=== PATIENT | female | born 1945 | race Caucasian/White ===

== ENCOUNTER 2018-06-29 08:49 | Day surgery (SDC) | payer MEDICARE ==
[~2018-06-29 08:49] MED LIST: CELECOXIB 100 MG CAPSULE PO ONE; FAMOTIDINE 20MG TABLET PO ONE; MECLIZINE 25 MG TABLET PO ONE; METOCLOPRAMIDE 10 MG TABLET PO ONE; VANCOMYCIN HCL 1 MG in DEXTROSE 5 % IN WATER 250 ML IVPB ONE
[2018-06-29] MEDS ORDERED: DEXAMETHASONE 4 MG/ML 1ML VIAL IVP ONE (08:50)
[2018-06-29] MEDS ORDERED: GLYCOPYRROLATE 0.2 MG/ML ML IV ONE (08:50)
[2018-06-29] MEDS ORDERED: KETAMINE HCL 100MG/1ML VIAL INJ ONE (08:50)
[2018-06-29] MEDS ORDERED: ROPIVACAINE HCL (NAROPIN) /PF 5MG/ML 20ML VIAL IV ONE (08:50)
[2018-06-29] MEDS ORDERED: MIDAZOLAM HCL 2MG/2ML VIAL IV ONE (08:50)
[2018-06-29] MEDS ORDERED: TRANEXAMIC ACID 1,000 MG/10 ML ML IV ONE ×2 (08:50)
[2018-06-29] MEDS ORDERED: 0.9 % SODIUM CHLORIDE 10 ML VIAL IVP ONE (08:50)
[2018-06-29 09:29] LABS: ABO GROUP O; RH TYPE POSITIVE
[2018-06-29] MEDS ORDERED: RINGERS SOLUTION,LACTATED 1,000 ML IV ONE ×3 (09:30→12:30)
[2018-06-29 09:42] LABS: ANTIBODY SCREEN NEGATIVE (NEGATIVE)
[2018-06-29] MEDS ORDERED: BUPIVACAINE 0.5% W/EPI MPF 30 ML VIAL SQ ONE (11:54)
[2018-06-29] MEDS ORDERED: ZOLPIDEM TARTRATE 5 MG TABLET PO PRN (13:15)
[2018-06-29] MEDS ORDERED: ONDANSETRON HCL IV 4 MG/2 ML VIAL IVP PRN (13:15)
[2018-06-29] MEDS ORDERED: KETOROLAC 30 MG/ML VIAL IVP PRN ×2 (13:15)
[2018-06-29] MEDS ORDERED: BISACODYL 10 MG SUPP RC PRN (13:15)
[2018-06-29] MEDS ORDERED: DIPHENHYDRAMINE HCL 25 MG CAPSULE PO PRN (13:15)
[2018-06-29] MEDS ORDERED: NALOXONE 0.4 MG/1 ML VIAL IVP PRN (13:15)
[2018-06-29] MEDS ORDERED: AL HYDROX/MAG HYDROX 30ML UD PO PRN (13:15)
[2018-06-29] MEDS ORDERED: MAGNESIUM HYDROXIDE 30 ML UDC PO PRN (13:15)
[2018-06-29] MEDS ORDERED: ACETAMINOPHEN 325 MG TAB PO PRN (13:15)
[2018-06-29] MEDS ORDERED: MEPERIDINE 50 MG/1 ML VIAL IV PRN ×2 (13:21→15:24)
[2018-06-29] MEDS ORDERED: MEPERIDINE 50 MG/1 ML VIAL PO PRN ×2 (15:24→15:25)
[2018-06-29] MEDS ORDERED: HYDROCODONE/APAP 7.5/325MG TABLET PO PRN (15:49)
[2018-06-29] MEDS ORDERED: BREO (FLUTICASONE/VILANTEROL) 200MCG/25MCG INHALER INH PRN (15:51)
[2018-06-29] MEDS ORDERED: ALBUTEROL HFA 8 GM INHALER INH PRN (15:52)
--- NOTE | 2018-06-29 16:46 | Rehab Evaluation ---
Patient Information - Patient Information Diagnosis: R knee OA Ordered Treatment: PT Evaluate and Treat Status: Initial Evaluation Surgery: Yes (TKA R knee) Date of Surgery: 06/29/18 Past Medical/Surgical Hx: PAST MEDICAL/SURGICAL HISTORY Past Surgical History TONSILS ORIF RIGHT LEG EVIE AND APPY RIGHT THUMB EAR TUBES X'S 2 C SCOPES BILAT KNEE SCOPES CYST REMOVAL CHEST LEFT FOOT SX X'S 3 EYE LID SX PMH - Respiratory Hx Asthma Yes: WELL CONTROLLED RARELY USES INHALER Hx Bronchitis Yes: IN THE PAST PMH - Cardiovascular Hx Cardiovascular Disorders Yes Hx Hypertension Yes: ON MEDS GOOD CONTROL Exercise Tolerance Good PMH - Neuro Hx Neurological Disorders No PMH - GI Hx Gastrointestinal Disorders Yes Hx Gastroesophageal Reflux Yes: CONTROLLED WITH MEDS Hx Ulcer Yes: GASTRIC PMH - Hx Genitourinary Disorders Yes Hx Age of Menopause 50 Hx Bladder Problem Yes: FREQUENCY ON MEDS PMH - Endocrine Hx Endocrine Disorders Yes Hx Thyroid Disease Yes PMH - Musculoskeletal Hx Musculoskeletal Disorders Yes Hx Arthritis Yes Hx Gout Yes: HX OF Hx Osteoporosis Yes: ON MEDS PMH - Psych Hx Psychiatric Problems Yes Hx Anxiety Yes PMH - Hematology/Oncology Hx Hematology/Oncology No Disorders Premorbid Status: Detail (The patient was independent with all mobility prior to surgery.) Social History: Detail (The patient lives with spuse in a 3 story house with a ramp at the enterance. The bathroom is equipped with a tub/shower combination, shower chair and standard height toilet.) Precautions: [place], Fall, Other (WBAT on the R LE) - Time With Patient Total Time Spent With Patient (Min): 30 Treatment Procedures: Detail (Initial Evaluation, Low complexity) Subjective Information - Subjective Information Per Patient (The patient had no complaints of pain.) Objective Data - Mental Status Patient Orientation: Oriented x3 - Visual Perception Appears within normal limits for therapeutic activities - ROM Not within normal limits (The patient's R knee was limited s/p surgery. All other AROM was WNL.) - Strength/Tone Not within normal limits (The patient's R LE was not tested s/p surgery however strength was functional ie: patient was able to lift LE in and out of bed independently. The patient's L LE was WFL.) - Bed Mobility Independent (The patient was independent with supine to and from sit transfer and scooting up in bed.) - Transfers Independent (The patient was independent with sit to and from stand transfer.) - Balance Balance Sitting: Good Balance Standing: Good - Gait Detail (The patient ambulated with 2 wheeled walker a distance of 80 feet x 1 WBAT on the R LE with supervision for safety.) Therapy Assessment - Therapy Assessment Detail (The patient was independent with bed mobiity and transfers and required supervision for safety only. Feel the patient will progress well with mobility.) Problem List - Problem List Physical Therapy Problem List: Detail (1) Decreased R knee AROM s/p surgery 2) Decreased R LE strength s/p surgery) Goals - Goals Physical Therapy Goals: 1) The patient will be independent with TKA HEP. 2) The patient will verbalize good understanding of stairclimbing technique (patient has no stairs at home). 3) The patient will be independent with ambulation with appropriate assistive device WBAT on the R LE community distances. Prognosis - Prognosis Good Plan - Plan Physical Therapy Plan: PT 1-2 sessions for gait training and instruction in HEP.
[2018-06-29] MEDS: HYDROCODONE/APAP 7.5/325MG TABLET PO PRN (18:26)
[2018-06-29] MEDS: POTASSIUM CHLORIDE/D5-0.9%NACL 20 MEQ/1,000 ML BAG IV SCH ×2 (18:27→21:54)
[2018-06-29] MEDS: VANCOMYCIN HCL 1,000 MG in DEXTROSE 5 % IN WATER 250 ML IVPB SCH ×2 (21:51)
[2018-06-29] MEDS: DOCUSATE SODIUM 100 MG CAPSULE PO SCH (21:52)
[2018-06-29] MEDS ORDERED: CITALOPRAM 20 MG TABLET PO SCH (22:00)
[2018-06-29] MEDS ORDERED: PANTOPRAZOLE SODIUM 40 MG TABLET PO SCH (22:00)
[2018-06-29] MEDS ORDERED: AMLODIPINE BESYLATE 5MG TAB PO SCH (22:00)
[2018-06-30] MEDS: POTASSIUM CHLORIDE/D5-0.9%NACL 20 MEQ/1,000 ML BAG IV SCH ×2 (05:08→15:19)
[2018-06-30 06:56] LABS: HEMATOCRIT 36.4 % (35.0-47.0); HEMOGLOBIN 11.6 gm/dl (11.6-16.0)
[2018-06-30] MEDS ORDERED: LEVOTHYROXINE SODIUM 25 MCG TABLET PO SCH (07:00)
[2018-06-30 07:14] LABS: BLOOD UREA NITROGEN 19 mg/dL (8-23); CREATININE 0.7 mg/dL (0.5-0.9); EST GLOMERULAR FILTRATION RATE > 60 mL/min; GLUCOSE,RANDOM 127 mg/dL (74-109)
[2018-06-30] MEDS ORDERED: HYDROCHLOROTHIAZIDE 25 MG TABLET PO SCH (10:00)
[2018-06-30] MEDS ORDERED: RIVAROXABAN 10 MG TABLET PO SCH (10:00)
[2018-06-30] MEDS ORDERED: FERROUS SULFATE 325 MG TAB PO SCH (10:00)
[2018-06-30] MEDS ORDERED: LORATADINE 10 MG TABLET PO SCH (10:00)
[2018-06-30] MEDS ORDERED: METOPROLOL SUCC 50 MG TABLET PO SCH (10:00)
[2018-06-30] MEDS ORDERED: ASPIRIN 81 MG TABEC PO SCH (10:00)
[2018-06-30] MEDS ORDERED: ALPRAZOLAM 0.25 MG TABLET PO SCH (10:00)
[2018-06-30] MEDS ORDERED: CHOLECALCIFEROL 1,000 UNIT TABLET PO SCH (10:00)
[2018-06-30] MEDS: DOCUSATE SODIUM 100 MG CAPSULE PO SCH (11:24)
[2018-06-30] MEDS: VANCOMYCIN HCL 1,000 MG in DEXTROSE 5 % IN WATER 250 ML IVPB SCH ×2 (11:48)
--- NOTE | 2018-06-30 12:02 | Physical Therapy Tx Note ---
<Marla Soriano S - Last Filed: 06/30/18 11:49> Physical Therapy Tx Note - Treatment Note Tolerated: Good Total Time Spent With Patient: 35 Physical Therapy Tx Note: Detail (Pt was sitting in a chair with ice on her knee upon arrival. Pt ambulated 176ft with front wheeled walker with contact guard assist. Pt descended and ascended 3 steps with contact guard using folded walker. Pt was independent with all transfers. Pt performed ankle pumps, toe/heel raises, quad sets, LAQ, and glute sqeezes all x15 while seated. Pt had no pain with gait and most activities but had some discomfort with LAQ. Pt was left with ice on her R knee sitting in a chair with leg elevated. Pt was given bed side table and call light.) Physical Therapy Problem List: Detail (1) Decreased R knee AROM s/p surgery 2) Decreased R LE strength s/p surgery) Physical Therapy Goals: 1) The patient will be independent with TKA HEP. 2) The patient will verbalize good understanding of stairclimbing technique (patient has no stairs at home). 3) The patient will be independent with ambulation with appropriate assistive device WBAT on the R LE community distances. Prognosis: Good Physical Therapy Plan: PT 1-2 sessions for gait training and instruction in HEP. <Roman PTNatalie M - Last Filed: 06/30/18 16:45> Physical Therapy Tx Note - Treatment Note Physical Therapy Goals: All Inpatient PT goals have been met. Physical Therapy Plan: Patient is discharged from inpatient PT and is to continue with Home PT.
--- NOTE | 2018-06-30 12:03 | Rehab Evaluation ---
Patient Information - Patient Information Diagnosis: R knee OA Ordered Treatment: OT Evaluate and Treat Status: Initial Evaluation Surgery: Yes (TKA R knee) Date of Surgery: 06/29/18 Past Medical/Surgical Hx: PAST MEDICAL/SURGICAL HISTORY Past Surgical History TONSILS ORIF RIGHT LEG EVIE AND APPY RIGHT THUMB EAR TUBES X'S 2 C SCOPES BILAT KNEE SCOPES CYST REMOVAL CHEST LEFT FOOT SX X'S 3 EYE LID SX PMH - Respiratory Hx Asthma Yes: WELL CONTROLLED RARELY USES INHALER Hx Bronchitis Yes: IN THE PAST PMH - Cardiovascular Hx Cardiovascular Disorders Yes Hx Hypertension Yes: ON MEDS GOOD CONTROL Exercise Tolerance Good PMH - Neuro Hx Neurological Disorders No PMH - GI Hx Gastrointestinal Disorders Yes Hx Gastroesophageal Reflux Yes: CONTROLLED WITH MEDS Hx Ulcer Yes: GASTRIC PMH - Hx Genitourinary Disorders Yes Hx Age of Menopause 50 Hx Bladder Problem Yes: FREQUENCY ON MEDS PMH - Endocrine Hx Endocrine Disorders Yes Hx Thyroid Disease Yes PMH - Musculoskeletal Hx Musculoskeletal Disorders Yes Hx Arthritis Yes Hx Gout Yes: HX OF Hx Osteoporosis Yes: ON MEDS PMH - Psych Hx Psychiatric Problems Yes Hx Anxiety Yes PMH - Hematology/Oncology Hx Hematology/Oncology No Disorders Premorbid Status: Detail (The patient was independent with all ADLs and mobility prior to surgery, using no AD.) Social History: Detail (The patient lives with spuse in a 3 story house without any steps at the entrance. The bathroom is equipped with a tub/shower combination with GBs, a shower chair, a hand-held shower, and standard height toilet with GBs. She has a FWW and 4WW as well as a lawyer probate. [employer] she was indep with ADLs and driving.) Precautions: [place], Fall, Other (WBAT on the R LE) - Time With Patient Total Time Spent With Patient (Min): 25 (1 Eval) Treatment Procedures: Detail (OT eval: Low complexity) Subjective Information - Subjective Information Per Patient (ok to see per DIDI Kumar. Pt agreeable to OT eval.) Objective Data - Pain Pain Present: No - Mental Status Patient Orientation: Oriented x3 - Visual Perception Appears within normal limits for therapeutic activities - ROM Within normal limits (B UE) - Strength/Tone Within normal limits - Coordination Appears within normal limits for therapeutic activities - Bed Mobility Independent (supine > EOB) - Transfers Independent (sit >< stand from low surfaces to FWW, no safety concerns) - Balance Balance Sitting: Good Balance Standing: Good, Fair - Sensation Intact - Gait Detail (Fxl amb within bedroom with FWW, initial verbal instruction for safe FWW use and to maintain hip prec - no twisting, progressing to MOD I with walker.) - ADL's/IADL's Detail (OT educ. Pt on mod. tech. for LB dressing, Pt demos indep don/doff underwear, slip, dress, and socks, demos fxl ability to don/doff shoes but forewent d/t damien bandage. OT educ. Pt on home safety in bathroom, kitchen, and laundry. Pt reports can assist as needed at DC.) Therapy Assessment - Therapy Assessment Detail (Pt demos safety and indep. with ADLs and fxl mobility, no safety concerns.) Patient Education - Patient Education Teaching Topic: Other (ADL training) Response: Return Demonstration, Reinforcement Needed Teaching Method: Discussion, Demonstration Teaching Recipient: Patient Barriers To Learning: None Problem List - Problem List Physical Therapy Problem List: Detail (1) Decreased R knee AROM s/p surgery 2) Decreased R LE strength s/p surgery) Occupational Therapy Problem List: Detail (No further OT needs identified.) Goals - Goals Physical Therapy Goals: 1) The patient will be independent with TKA HEP. 2) The patient will verbalize good understanding of stairclimbing technique (patient has no stairs at home). 3) The patient will be independent with ambulation with appropriate assistive device WBAT on the R LE community distances. Occupational Therapy Goals: No further OT needs/goals identified. Prognosis - Prognosis Good Plan - Plan Physical Therapy Plan: PT 1-2 sessions for gait training and instruction in HEP. Occupational Therapy Plan: No further OT needs/goals identified. DC IP OT. Thank you for this referral.
[2018-06-30] MEDS: HYDROCODONE/APAP 7.5/325MG TABLET PO PRN (15:01)
--- NOTE | 2018-07-01 08:40 | Operative Note ---
DATE OF SURGERY: 06/29/2018 PREOPERATIVE DIAGNOSIS: End-stage arthrosis of the right knee. POSTOPERATIVE DIAGNOSIS: End-stage arthrosis of the right knee. OPERATION: Cemented right total knee arthroplasty using [employer] Shama II components with a size 3 cobalt chrome femur, a size 2 stem tibia baseplate, a 9 mm lipped tibial insert, and a 32 mm all plastic patella. STAFF SURGEON: Ramon Urbina MD ANESTHESIA: Spinal. PREPARATION: Chloraprep. INDIVIDUAL CONSIDERATIONS: None. PROCEDURE: The patient was taken to the operating room, placed supine on the operating room table. She had a successful induction of a spinal anesthetic. The right lower extremity was prepped and draped in the usual fashion. The limb was elevated and tourniquet was inflated to 250 mmHg. The patient had a midline approach to the knee. Sharp dissection carried down through skin and subcutaneous tissue. Small veins were coagulated with a Bovie. A medial arthrotomy was performed. The patella was everted and the knee was flexed. The patient had exposed bone primarily medially. Fat pad was resected, ACL was sacrificed, and provisional anterior meniscectomies were performed. The capsule was released from the medial proximal tibia. The initial femoral engine pilot hole was then made freehand. The intramedullary femoral cutting jig was placed. It was cut in 7.0 degrees of valgus and adjusted for rotation and secured for a 10 mm resection. The initial transverse cut was then made. The skin guide was placed in the anterior and posterior engine pilot holes. It was found that a size 3 would be appropriate. The anterior and posterior cuts were made. Osteophytes removed, and a size 3 trial was placed and found to fit well. The tibia was brought forward, and the remainder of the meniscal remnants removed with a Bovie. The extraarticular tibial cutting jig was placed. It was cut in neutral with a 3-degree AP slope. Care was taken to adjust for rotation and flexion to preserve the PCL insertion on the tibia. After making the cut, osteophytes removed and I could fit a size 2 baseplate. Trial was adjusted for rotation and secured with pins. With a 9 mm trial and femoral trial, there was excellent motion and stability, ligamentous balance and rotation alignment were thought to be normal. Femoral engine pilot holes were impacted. Tri-flange tibial stamp was impacted, and these trial components were removed. The patient had a thick patella and I took roughly 9 mm of bone off. I could fit a 32 mm patella. The 3 engine pilot holes were drilled. The tourniquet was let down briefly to get bleeders posteriorly and then placed back up again. The knee was then thoroughly irrigated out with pulsatile Betadine and saline to remove any visual or palpable debris. Bony surfaces were then dried. A size 2 stem tibia baseplate was cemented into place followed by impaction of the 9 mm lipped tibial insert followed by cementing in the size 3 femoral component followed by cementing in the 32 mm patella. The implant surfaces were compressed, excess cement was removed. After the cement had set, there was excellent motion and stability, ligamentous balance, rotation alignment, and patellofemoral tracking were normal. No lateral release was required. Tourniquet was let down. Hemostasis was obtained with a Bovie. The capsule, periosteum, and subcu were infiltrated with 30 mL of 0.5% Marcaine with epinephrine prior. The capsule was then closed with a running #2 quill, subcu was closed in layers with running 0 quill, skin was closed with tomas. Then 30 mL of saline was mixed with 1 g of tranexamic acid and it was injected into the knee through a sterile 18-gauge needle, and a sterile bulky compressive MALCOLM-type dressing was applied. The patient tolerated the procedure well. Needle and sponge counts were correct. Estimated blood loss was minimal, and she was taken back to recovery in good condition. There were no complications. CAROL
== END 2018-06-30 15:20 | disposition home health service (06) ==
LOC: SUR 08:49 → MEDSURG 14:18 → SUR 06-30 15:20
PROVIDERS: ATTEND Orthopaedic Surgery
DX: M17.11 Unilateral primary osteoarthritis, right knee (principal); I10 Essential (primary) hypertension; K21.9 Gastro-esophageal reflux disease without esophagitis; J44.9 Chronic obstructive pulmonary disease, unspecified; J45.909 Unspecified asthma, uncomplicated; E03.9 Hypothyroidism, unspecified
CPT/HCPCS: 27447; 01402; 64447; 85018; 85014; 80048; 86900; 86901; 86850; J1885; J3370; J3490 ×2; J2795; 76942; 97110; C1776; J3480; J7060; J7120